=== PATIENT | female | born 1985 | race Caucasian/White ===

== ENCOUNTER 2023-12-26 19:54 | Inpatient (IN) ==
[2023-12-26] MEDS: Droperidol 5 MG/2 ML 2 ML VIAL IM ONE (21:43)
[2023-12-26 22:31] LABS: ABS Basophils 0.1 10^3/uL (0.0-0.1); ABS Eosinophils 0.2 10^3/uL (0.0-0.5); ABS Lymphocytes 2.8 10^3/uL (1.0-4.8); ABS Monocytes 0.6 10^3/uL (0.0-0.9); ABS Neutrophils 3.5 10^3/uL (1.5-7.6); ABS Nucleated RBC 0.01 10^3/ul; Eosinophil % 2.9 %; Hematocrit 35.6 % (35-45); Hemoglobin 11.8 g/dL (11.5-14.3); Lymphocyte % 38.8 %; Mean Corpuscular Hgb Conc 33.2 g/dL (31-36); Mean Corpuscular Volume 78.5 fL (80-97); Nucleated Red Blood Cells % 0.1 %/100WBC (0.0-0.8); Platelet Count 398 10^3/uL (150-450); Red Blood Count 4.53 10^6/uL (3.63-4.92); Red Cell Distribution Width 16.5 % (12-17); White Blood Count 7.1 10^3/uL (3.8-11.8)
[2023-12-26 22:55] LABS: ALT 21 U/L (7-52); AST 17 U/L (13-39); Acetaminophen < 15 mcg/mL; Albumin 4.1 g/dL (3.2-5.2); Albumin/Globulin Ratio 1.5 (1-3); Alcohol, S < 13 mg/dL (<13); Alkaline Phosphatase 65 U/L (35-149); Anion Gap 8 mmol/L (2-16); Blood Urea Nitrogen 12 mg/dL (6-24); CO2 Carbon Dioxide 27 mmol/L (22-32); Chloride 105 mmol/L (101-111); Globulin 2.8 g/dL (2-4); Glucose 100 mg/dL (70-100); Potassium 4.1 mmol/L (3.5-5.0); Salicylate < 2.50 mg/dL (<30); Sodium 140 mmol/L (135-145); Total Bilirubin 0.5 mg/dL (0.2-1.0); Total Protein 6.9 g/dL (6.4-8.9); eGFR CKD-EPI 124.6 (>60)
[2023-12-26 23:02] LABS: HCG Pregnancy < 0.60 mIU/mL
[2023-12-26 23:11] LABS: TSH Ultra Thyroid Stim Horm 3.04 mcIU/mL (0.34-5.60)
[2023-12-26 23:59] LABS: Urine Appearance Clear; Urine Bilirubin Negative (Negative); Urine Blood 2+ (Negative); Urine Color Light-Yellow; Urine Glucose Negative (Negative); Urine Ketones Negative (Negative); Urine Nitrite Negative (Negative); Urine Protein Negative (Negative); Urine Specific Gravity 1.019 (1.002-1.030); Urine Urobilinogen Negative (Negative)
[2023-12-27] LABS: Urine Bacteria Absent /HPF (Absent); Urine Red Blood Cell Trace(0-2/hpf) /HPF (0-Trace); Urine Squamous Epithelial Cell Present /HPF (Absent); Urine White Blood Cell Trace(0-5/hpf) /HPF (0-Trace)
[2023-12-27 00:25] LABS: Urine Benzodiazepine Screen None Detected (None Detect); Urine Buprenorphine Screen None Detected (None Detect); Urine Cannabinoids Screen Presumptive Positive (None Detect); Urine Fentanyl Screen None Detected (None Detect); Urine Hydrocodone Screen None Detected (None Detect); Urine Opiates Screen None Detected (None Detect)
[2023-12-27] MEDS ORDERED: Al Hydrox/Mg Hydrox/Simet LIQ 30 ML UDC PO PRN (02:35)
[2023-12-27] MEDS ORDERED: Albuterol HFA INHALER 8 gm MDI INH PRN (02:39)
[2023-12-27] MEDS ORDERED: OLANZapine 10 mg TAB*ODT PO PRN (09:41)
[2023-12-27] MEDS: Vitamin THERAPEUTIC TAB PO SCH (10:49)
[2023-12-27] MEDS: Buprenorp/Nalox 8-2 MG FILM SL SCH (11:02)
[2023-12-27] MEDS ORDERED: OLANZapine 5 mg TAB *ODT PO PRN (14:23)
[2023-12-28] MEDS: Benzocaine/Menthol LOZ MT PRN (10:02)
[2023-12-28] MEDS: Nicotine GUM 2MG FRUIT FLAVOR PO PRN (14:47)
[2023-12-28] MEDS: OLANZapine 10 mg TAB*ODT PO SCH (20:05)
[2023-12-29] MEDS: Nicotine PATCH 14 MG/24 HR PATCH TRANSDERM SCH (08:36)
[2023-12-31] MEDS: Polyethylene Glycol 3350 17 GM PACKET ONE (15:19)
[2023-12-31] MEDS: Polyethylene Glycol 3350 17 GM PACKET PO PRN (15:20)
[2024-01-01 08:35] LABS: HDL Cholesterol 71.5 mg/dL
[2024-01-01 10:43] VITALS: BP 105/58
== END 2024-01-01 13:01 | disposition home or self-care (01) | DRG 774 ==
LOC: ED 19:54 → EDHOLD 12-27 02:08 → BSU 12-27 08:16
PROVIDERS: ADMIT Psychiatry & Neurology Psychiatry; ATTEND Student in an Organized Health Care Education/Training Program